=== PATIENT | male | born 1950 | race Caucasian/White ===

== ENCOUNTER 2017-06-25 19:50 | Inpatient (IN) | payer MEDICARE ==
[~2017-06-25] VITALS: Ht 177.8 cm; Wt 97.4 kg
[2017-06-25 20:06] VITALS: BP 99/56; PULSE 87; RESP 16; TEMP 98.5; O2SAT 97
[2017-06-25] MEDS ORDERED: SODIUM CHLOR 0.9% 1000 ML INJ 1,000 ML IV SCH (20:21)
[2017-06-25 20:30] VITALS: O2SAT 98
[2017-06-25] MEDS ORDERED: SODIUM CHLORIDE 0.9% FLUSH 10 ML FLUSH IVF PRN (20:30)
[2017-06-25 20:40] LABS: AUTOMATED NEUTROPHIL # 12.3 TH/MM3 (1.8-7.7); BASOPHIL # 0.1 TH/MM3 (0-0.2); BASOPHIL % 0.7 % (0.0-2.0); EOSINOPHIL # 0.1 TH/MM3 (0-0.4); EOSINOPHIL % 0.5 % (0.0-4.0); HEMATOCRIT 38.5 % (39.0-51.0); HEMOGLOBIN 13.2 GM/DL (13.0-17.0); LYMPH % 15.4 % (9.0-44.0); LYMPHOCYTE # 2.5 TH/MM3 (1.0-4.8); MEAN CELL VOLUME 91.7 FL (80.0-100.0); MEAN CORPUSCULAR HEMOGLOBIN 31.4 PG (27.0-34.0); MEAN CORPUSCULAR HGB CONC 34.3 % (32.0-36.0); MEAN PLATELET VOLUME 7.8 FL (7.0-11.0); MONO % 6.2 % (0.0-8.0); NEUT % 77.2 % (16.0-70.0); PLATELET COUNT 216 TH/MM3 (150-450); RED CELL DISTRIBUTION WIDTH 13.7 % (11.6-17.2)
[2017-06-25 20:49] LABS: CALCIUM 8.7 MG/DL (8.5-10.1)
[2017-06-25 20:52] LABS: PROTHROMBIN TIME - PATIENT 10.2 SEC (9.8-11.6)
[2017-06-25 20:53] LABS: CREATININE 1.5 MG/DL (0.60-1.30)
[2017-06-25] MEDS ORDERED: IOHEXOL 350 MG/ML 10 ML VIAL (for RAD DIAG) IVCONTRAST ONE (21:00)
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
[2017-06-25 21:09] VITALS: BP 157/80; PULSE 75; RESP 16; O2SAT 98
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
[2017-06-25] MEDS ORDERED: TETANUS/DIPHTHERIA TOXOID ADULT 0.5 ML VIAL IM ONE (21:30)
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
[2017-06-25 21:52] VITALS: BP 132/85; TEMP 98.2
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
[2017-06-25 23:20] VITALS: O2SAT 96
[2017-06-25] MEDS ORDERED: MISCELLANEOUS NURSING INFORMATION XX SCH (23:30)
[2017-06-25] MEDS ORDERED: ENALAPRILAT 1.25 MG/ML VIAL IV PUSH PRN (23:30)
[2017-06-25] MEDS ORDERED: CHLORHEXIDINE GLUCONATE 2 % 1 PACK (2 CLOTHS) TOP PRN (23:30)
[2017-06-25] MEDS ORDERED: MORPHINE SULFATE 4 MG/ML INJ IV PUSH PRN ×2 (23:30)
[2017-06-25] MEDS ORDERED: SODIUM CHLORIDE 0.9% FLUSH 10 ML FLUSH IV FLUSH PRN (23:30)
[2017-06-25] MEDS ORDERED: ONDANSETRON HCL 4 MG/2 ML VIAL IV PUSH PRN (23:30)
[2017-06-25] MEDS ORDERED: diphenhydrAMINE HCL 50 MG/ML VIAL IV PUSH ONE (23:45)
[2017-06-25] MEDS: PANTOPRAZOLE SODIUM 40 MG VIAL IVP SCH (23:49)
[2017-06-25] MEDS: SODIUM CHLOR 0.9% 1000 ML INJ 1,000 ML IV SCH (23:49)
[2017-06-26] VITALS (12 sets, daily range): BP systolic 111–141; BP diastolic 58–70; PULSE 60–75; RESP 19–25; TEMP 98.3–98.8; O2SAT 95–97
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
[2017-06-26] MEDS: CHLORHEXIDINE GLUCONATE 2 % 1 PACK (2 CLOTHS) TOP SCH (03:10)
[2017-06-26 05:11] LABS: AUTOMATED NEUTROPHIL # 5.4 TH/MM3 (1.8-7.7); BASOPHIL % 0.5 % (0.0-2.0); EOSINOPHIL # 0.1 TH/MM3 (0-0.4); EOSINOPHIL % 0.8 % (0.0-4.0); HEMATOCRIT 30.6 % (39.0-51.0); HEMOGLOBIN 10.5 GM/DL (13.0-17.0); LYMPHOCYTE # 1.6 TH/MM3 (1.0-4.8); MEAN CELL VOLUME 92.8 FL (80.0-100.0); MEAN CORPUSCULAR HEMOGLOBIN 31.9 PG (27.0-34.0); MEAN CORPUSCULAR HGB CONC 34.4 % (32.0-36.0); MEAN PLATELET VOLUME 7.9 FL (7.0-11.0); MONO % 6.6 % (0.0-8.0); MONOCYTE # 0.5 TH/MM3 (0-0.9); NEUT % 71.1 % (16.0-70.0); PLATELET COUNT 148 TH/MM3 (150-450); RED CELL DISTRIBUTION WIDTH 14.1 % (11.6-17.2); WHITE BLOOD COUNT 7.7 TH/MM3 (4.0-11.0)
[2017-06-26 05:32] LABS: AST (GOT) 22 U/L (15-37); BLOOD UREA NITROGEN 17 MG/DL (7-18); CALCIUM 8.6 MG/DL (8.5-10.1); CHLORIDE 108 MEQ/L (98-107); CREATININE 1.04 MG/DL (0.60-1.30); GLOMERULAR FILTRATION RATE 71 ML/MIN (>89); GLUCOSE,RANDOM 103 MG/DL (74-106); SODIUM (NA) 140 MEQ/L (136-145)
[2017-06-26 05:33] LABS: ALT (GPT) 24 U/L (12-78)
[2017-06-26 05:35] LABS: ALKALINE PHOSPHATASE 44 U/L (45-117); TOTAL BILIRUBIN ADULT 0.8 MG/DL (0.2-1.0); TOTAL PROTEIN 5.1 GM/DL (6.4-8.2)
[2017-06-26] MEDS: MAGNESIUM HYDROXIDE SUSP 30 ML CUP PO SCH ×2 (08:15→21:00)
[2017-06-26] MEDS: DOCUSATE SODIUM 50 MG/SENNA 8.6 MG TAB PO SCH ×2 (08:16→21:00)
[2017-06-26] MEDS: SODIUM CHLOR 0.9% 1000 ML INJ 1,000 ML IV SCH ×3 (08:17→23:28)
[2017-06-26] MEDS ORDERED: ACETAMINOPHEN/HYDROcodone 325 MG/5 MG TAB PO PRN (11:00)
[2017-06-26] MEDS ORDERED: ACETAMINOPHEN/HYDROcodone 325 MG/7.5 MG TAB PO PRN (11:00)
[2017-06-26 12:48] LABS: HEMATOCRIT 34.3 % (39.0-51.0); HEMOGLOBIN 11.5 GM/DL (13.0-17.0)
--- NOTE | 2017-06-26 14:12 | EKG ---
Date Performed: 06/25/2017 Time Performed: 20:24:11 PTAGE: 66 years EKG: Sinus rhythm NONSPECIFIC ST & T-WAVE ABNORMALITY BORDERLINE ECG NO PREVIOUS TRACING Clinical correlation recommended. DOCTOR: Elijah Murray Interpretating Date/Time 06/26/2017 14:10:45
--- NOTE | 2017-06-26 15:14 | HHI.CCPN ---
Subjective Brief History Grade 3 splenic injury after [facility] 24 Hour Review/Hospital Course 06/26 Patient is overall stable He complains of mild abdominal pain left upper quadrant I reviewed the CT scan-he has a grade 3 splenic injury-with the with a moderately large subcapsular hematoma H&H remains stable Objective Vital Signs Date Time Temp Pulse Resp B/P (MAP) Pulse Ox O2 Delivery O2 Flow Rate FiO2 06/26/17 12:00 70 06/26/17 12:00 98.3 23 134/58 (83) 95 06/26/17 08:00 Room Air 06/25/17 23:20 21 Intake and Output 06/26/17 06/26/17 06/27/17 08:00 16:00 00:00 Intake Total 758 ml Output Total 225 ml Balance 533 ml Result Diagram: 06/26/17 1211 06/26/17 0432 Imaging Last 24 hours Impressions Thoracic Spine CT 06/25/172020 Signed Impressions: Service Date/Time: June 20:39 - CONCLUSION: Intac thoracic spine. Multilevel/diffuse mild degenerative changes. Sawyer Alvarez MD Lumbar Spine CT 06/25/172020 Signed Impressions: Service Date/Time: June 20:39 - CONCLUSION: Intact lumbar spine. Degenerative changes as above. Sawyer Alvarez MD Head CT 06/25/172020 Signed Impressions: Service Date/Time: June 20:33 - CONCLUSION: Negative noncontrast head CT. Sawyer Alvarez MD Chest CT 06/25/172020 Signed Impressions: Service Date/Time: June 20:39 - CONCLUSION: No acute chest abnormality. Sawyer Alvarez MD Cervical Spine CT 06/25/172020 Signed Impressions: Service Date/Time: June 20:33 - CONCLUSION: Intact cervical spine. Degenerative changes as above. Sawyer Alvarez MD Abdomen/Pelvis CT 06/25/172020 Signed Impressions: Service Date/Time: June 20:39 - CONCLUSION: Low grade splenic laceration with a subcapsular hematoma. No active bleeding demonstrated. Small intraperitoneal blood. Sawyer Alvarez MD Exam HVAC LEAD Arelis Coma Score is 15 Hemodynamic/Cardiac Stable Pulmonary/Respiratory Clear breath sounds bilateral Abdomen/GI Nutrition Soft Urinary Catheter Assessment Urinary Catheter: No Vascular Central Line Catheter Vascular Central Line Catheter: No Assessment and Plan Plan Grade 3 splenic injury Nonsurgical management failure rate is higher at this age group We will observe patient closely If there is any drop in his hemoglobin-will proceed with an embolization Mari Mcmanus MD Jun 26, 2017 15:14
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
[2017-06-26 19:22] LABS: HEMOGLOBIN 10.2 GM/DL (13.0-17.0)
[2017-06-26] MEDS: PANTOPRAZOLE SODIUM 40 MG VIAL IVP SCH (23:30)
[2017-06-27] VITALS (13 sets, daily range): BP systolic 107–153; BP diastolic 60–83; PULSE 62–79; RESP 18–24; TEMP 98.3–98.9; O2SAT 93–97
[2017-06-27] MEDS: CHLORHEXIDINE GLUCONATE 2 % 1 PACK (2 CLOTHS) TOP SCH (04:00)
[2017-06-27 04:51] LABS: AUTOMATED NEUTROPHIL # 3.4 TH/MM3 (1.8-7.7); BASOPHIL % 0.6 % (0.0-2.0); EOSINOPHIL # 0.1 TH/MM3 (0-0.4); HEMATOCRIT 27.1 % (39.0-51.0); HEMOGLOBIN 9.3 GM/DL (13.0-17.0); LYMPH % 28.1 % (9.0-44.0); LYMPHOCYTE # 1.5 TH/MM3 (1.0-4.8); MEAN CELL VOLUME 93.4 FL (80.0-100.0); MEAN CORPUSCULAR HGB CONC 34.3 % (32.0-36.0); MEAN PLATELET VOLUME 7.8 FL (7.0-11.0); MONO % 7.7 % (0.0-8.0); MONOCYTE # 0.4 TH/MM3 (0-0.9); NEUT % 62.6 % (16.0-70.0); PLATELET COUNT 128 TH/MM3 (150-450); RED BLOOD COUNT 2.91 MIL/MM3 (4.50-5.90); RED CELL DISTRIBUTION WIDTH 14.1 % (11.6-17.2); WHITE BLOOD COUNT 5.5 TH/MM3 (4.0-11.0)
[2017-06-27 05:19] LABS: ALBUMIN 2.7 GM/DL (3.4-5.0); AST (GOT) 21 U/L (15-37); BICARBONATE 26.2 MEQ/L (21.0-32.0); BLOOD UREA NITROGEN 12 MG/DL (7-18); CALCIUM 7.8 MG/DL (8.5-10.1); CHLORIDE 111 MEQ/L (98-107); CREATININE 0.85 MG/DL (0.60-1.30); GLOMERULAR FILTRATION RATE 90 ML/MIN (>89); GLUCOSE,RANDOM 102 MG/DL (74-106); SODIUM (NA) 143 MEQ/L (136-145)
[2017-06-27 05:23] LABS: ALKALINE PHOSPHATASE 46 U/L (45-117); ALT (GPT) 21 U/L (12-78); TOTAL BILIRUBIN ADULT 0.6 MG/DL (0.2-1.0); TOTAL PROTEIN 5.1 GM/DL (6.4-8.2)
[2017-06-27] MEDS: SODIUM CHLOR 0.9% 1000 ML INJ 1,000 ML IV SCH (07:28)
[2017-06-27] MEDS: MAGNESIUM HYDROXIDE SUSP 30 ML CUP PO SCH ×2 (09:00→21:00)
[2017-06-27] MEDS: DOCUSATE SODIUM 50 MG/SENNA 8.6 MG TAB PO SCH ×2 (09:00→21:00)
--- NOTE | 2017-06-27 15:09 | HHI.CCPN ---
Subjective Brief History Grade 3 splenic [place] [facility] [place]/Hospital Course 06/26 Patient is overall stable He complains of mild abdominal pain left upper quadrant I reviewed the CT scan-he has a grade 3 splenic injury-with the with a moderately large subcapsular hematoma H&H remains stable 06/27 Patient is feeling better Hemoglobin is 9.2 Abdomen soft and benign HD normal Objective Vital Signs Date Time Temp Pulse Resp B/P (MAP) Pulse Ox O2 Delivery O2 Flow Rate FiO2 06/27/17 12:00 98.7 66 22 144/65 (91) 95 06/27/17 07:00 Room Air 21 Intake and Output 06/27/17 06/27/17 06/28/17 08:00 16:00 00:00 Intake Total 152 ml Balance 152 ml Result Diagram: 06/27/17 0409 06/27/17 0409 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
[2017-06-27 16:59] LABS: HEMATOCRIT 28.4 % (39.0-51.0); HEMOGLOBIN 9.8 GM/DL (13.0-17.0)
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
[2017-06-27] MEDS ORDERED: PERI PO (22:58)
[2017-06-27] MEDS ORDERED: MAGN30S PO (22:58)
[2017-06-27] MEDS: PANTOPRAZOLE SODIUM 40 MG VIAL IVP SCH (23:09)
[2017-06-28 04:39] LABS: HEMATOCRIT 25.8 % (39.0-51.0)
[2017-06-28 08:00] VITALS: BP 144/83; PULSE 70; RESP 17; TEMP 97; O2SAT 94
[2017-06-28] MEDS: MAGNESIUM HYDROXIDE SUSP 30 ML CUP PO SCH (09:00)
[2017-06-28] MEDS: DOCUSATE SODIUM 50 MG/SENNA 8.6 MG TAB PO SCH (09:00)
[2017-06-28] MEDS ORDERED: HYDR-3516 PO (11:26)
[2017-06-28 12:00] VITALS: BP 131/74; PULSE 69; RESP 16; TEMP 98.2; O2SAT 94
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
== END 2017-06-28 15:16 | disposition home or self-care (01) | DRG 816 ==
LOC: PHED 19:50 → PHEDA 21:05 → N03A 22:13 → N07A 06-27 20:59
PROVIDERS: ADMIT Surgery; ATTEND Surgery
PROC: 0HQ0XZZ Repair Scalp Skin, External Approach (ICD-10-PCS; principal; 2017-06-25)
DX: S36.021A Major contusion of spleen, initial encounter (principal); I95.9 Hypotension, unspecified; R56.9 Unspecified convulsions; S01.81XA Laceration without foreign body of other part of head, initial encounter; S30.1XXA Contusion of abdominal wall, initial encounter; S36.039A Unspecified laceration of spleen, initial encounter; E11.9 Type 2 diabetes mellitus without complications; E78.00 Pure hypercholesterolemia, unspecified; V28.4XXA Motorcycle driver injured in noncollision transport accident in traffic accident, initial encounter; Y92.410 Unspecified street and highway as the place of occurrence of the external cause; Z79.84 Long term (current) use of oral hypoglycemic drugs
CPT/HCPCS: 12002; 70450; 71260; 72125; 72129; 72132; 74177; 80048; 80053; 80307; 85014; 85018; 85025; 85384; 85610; 85730; 86850; 86900; 86901; 87641; 93005; 95819; C9113; J1200; J2270; J7030; Q9967